=== PATIENT | male | born 2000 | race Caucasian/White ===

== ENCOUNTER 2023-10-22 15:10 | Emergency (ER) | payer OTHER ==
[2023-10-22 15:39] VITALS: BP 122/76; O2SAT 100
[2023-10-22 16:33] LABS: B. PARAPERTUSSIS- RESP PCR PAN NOT DETECTED; B. PERTUSSIS- RESP PCR PANEL NOT DETECTED; C. PNEUMONIAE- RESP PCR PANEL NOT DETECTED; CORONAVIRUS 229E-RESP PCR NOT DETECTED; CORONAVIRUS HKU1-RESP PCR NOT DETECTED; CORONAVIRUS NL63-RESP PCR NOT DETECTED; CORONAVIRUS OC43-RESP PCR NOT DETECTED; HUMAN METAPNEUMOVIRUS NOT DETECTED; INFLUENZA A- RESP PCR PANEL NOT DETECTED; INFLUENZA B - RESP PCR PANEL NOT DETECTED; M. PNEUMONIAE- RESP PCR PANEL NOT DETECTED; PARAINFLUENZA VIRUS 1 NOT DETECTED; PARAINFLUENZA VIRUS 2 NOT DETECTED; PARAINFLUENZA VIRUS 3 NOT DETECTED; PARAINFLUENZA VIRUS 4 NOT DETECTED; RHINOVIRUS/ENTEROVIRUS NOT DETECTED; RSV- RESP PCR PANEL NOT DETECTED; SARS-CoV-2 -RESP PCR PANEL NOT DETECTED
--- NOTE | 2023-10-22 17:16 | XRAY Report ---
PROCEDURE: Chest 1V INDICATIONS: SOA TECHNIQUE: One view of the chest was acquired. COMPARISON: None. FINDINGS: Surgical changes and devices: None. Lungs and pleura: No pleural effusions or pneumothorax. Lungs are clear. Mediastinum: Mediastinal contours appear normal. Heart size is normal. Bones and chest wall: No suspicious bony lesions. Overlying soft tissues appear unremarkable. IMPRESSION: No acute cardiopulmonary process. Reviewed by: Fito Robertson MD on 10/22/2023 5:14 PM PST Approved by: Fito Robertson MD on 10/22/2023 5:14 PM PST Station ID: [id number]
[2023-10-22] MEDS ORDERED: dexAMETHasone 4 MG TABLET PO STA (18:04)
[2023-10-22] MEDS ORDERED: AMOXICILLIN 250 MG CAPSULE PO STA (18:04)
--- NOTE | 2023-10-22 18:07 | ED Physician Documentation ---
PD HPI URI - Stated complaint Stated Complaint: COUGH/CONGESTION - Chief complaint Chief Complaint: Resp - History obtained from History obtained from: Patient - History of Present Illness Timing - onset: How many weeks ago (2) Timing duration: Weeks (2) Timing details: Abrupt onset (he was sick 2 weeks ago with URI symptoms and cough that has persisted, with now worse cough and purulent sputum, aches, wheezing.), Still present Associated symptoms: Productive cough, Chest pain (with coughing.), Dyspnea Contributing factors: No: Travel, Immunocompromised, COPD / asthma Recently seen: Not recently seen Review of Systems Nose: reports: Congestion Cardiac: reports: Chest pain / pressure (with cough) Respiratory: reports: Dyspnea, Cough, Wheezing GI: denies: Vomiting, Diarrhea PD PAST MEDICAL HISTORY - Past Medical History Cardiovascular: None Respiratory: None Endocrine/Autoimmune: None - Present Medications Home Medications: Ambulatory Orders Medication Instructions Recorded Confirmed Albuterol Sulf [Ventolin Hfa 2 puffs INH QID #1 each 10/22/23 Inhaler] Amoxicillin 500 mg PO TID #21 cap 10/22/23 dexAMETHasone [Decadron] 4 mg PO DAILY #7 tablet 10/22/23 - Allergies Allergies/Adverse Reactions: Allergies Allergy/AdvReac Type Severity Reaction Status Date / Time No Known Drug Allergies Allergy Verified 10/22/23 15:30 PD ED PE NORMAL - Vitals Vital signs reviewed: Yes - General General: Alert and oriented X 3, No acute distress, Well developed/nourished - HEENT HEENT: Ears normal, Pharynx benign - Neck Neck: Supple, no meningeal sign, No adenopathy - Cardiac Cardiac: RRR, No murmur - Respiratory Respiratory: No respiratory distress. No: Clear bilaterally (wheezing noted on expiration and cough. Congested sounds with cough perihilar. ) - Abdomen Abdomen: Soft, Non tender - Derm Derm: Normal color, Warm and dry - Extremities Extremities: No edema, No calf tenderness / cord Results - Vitals Vitals: Oxygen O2 Source Room air - Labs Labs: Laboratory Tests 10/22/23 15:20 Nasal Adenovirus (PCR) NOT DETECTED Nasal B. parapertussis DNA (PCR) NOT DETECTED Nasal Coronavir 229E PCR NOT DETECTED Nasal Coronavir HKU1 PCR NOT DETECTED Nasal Coronavir NL63 PCR NOT DETECTED Nasal Coronavir OC43 PCR NOT DETECTED Nasal Enterovir/Rhinovir PCR NOT DETECTED Nasal Influenza B PCR NOT DETECTED Nasal Influenza A PCR NOT DETECTED Nasal Parainfluen 1 PCR NOT DETECTED Nasal Parainfluen 2 PCR NOT DETECTED Nasal Parainfluen 3 PCR NOT DETECTED Nasal Parainfluen 4 PCR NOT DETECTED Nasal RSV (PCR) NOT DETECTED Nasal B.pertussis DNA PCR NOT DETECTED Nasal C.pneumoniae (PCR) NOT DETECTED Delisa Human Metapneumo PCR NOT DETECTED Nasal M.pneumoniae (PCR) NOT DETECTED Nasal SARS-CoV-2 (PCR) NOT DETECTED - Rads (name of study) chest xray Relevant Findings:: Prelim report reviewed (no acute process. ), EMP independent interpretation of test PD Medical Decision Making - ED course Complexity details: reviewed results (chest xray without acute process. ), considered differential (prolonged cough and now purulent, worse cough. Sounds likely viral illness initially with suspicion for bacterial transformation now. No pneumonia but sounding bronchitis. ), d/w patient Departure - Departure Disposition: 01 Home, Self Care Clinical Impression: Persistent cough, Bronchitis, acute Condition: Stable Record reviewed to determine appropriate education?: Yes Instructions: ED Upper Resp Infec Abx Tx Follow-Up: DELISA Jansen [Provider Group] Prescriptions: Amoxicillin 500 mg PO TID #21 cap dexAMETHasone [Decadron] 4 mg PO DAILY #7 tablet Albuterol Sulf [Ventolin Hfa Inhaler] 2 puffs INH QID #1 each Comments: Your chest x-ray is clear without any signs of pneumonia. Your viral respiratory panel test is negative for the major viruses currently going around. Given the longer duration of your symptoms and cough with discolored sputum and still having fevers, the consideration would be a secondary bacterial infection. We can treat as a possible bacterial bronchitis with the antibiotics as well as using an inhaler and steroids to help clear some of the wheeziness and cough. Persistent bronchial irritation from a viral cause would be unlikely to still be causing fevers and not much symptoms after 2 or 3 weeks. I sent your prescription to the [facility] pharmacy. Stay well-hydrated. Tylenol or ibuprofen for fevers or pains. Follow-up with your primary care if not improved well over the next 3 to 5 days. Forms: PCP List Discharge Date/Time: 10/22/23 18:20
== END 2023-10-22 18:20 | disposition home or self-care (01) ==
LOC: ED 15:10
DX: J20.9 Acute bronchitis, unspecified (principal); Z11.52 Encounter for screening for COVID-19
CPT/HCPCS: 71045; 87633; 99284; A9270; J8540

== ENCOUNTER 2024-01-18 16:07 | Emergency (ER) | payer OTHER ==
[2024-01-18 16:26] VITALS: BP 116/70; O2SAT 99
[2024-01-18 16:51] LABS: RAPID STREP SCREEN POSITIVE (Negative)
--- NOTE | 2024-01-18 16:56 | ED Physician Documentation ---
PD HPI URI - Stated complaint Stated Complaint: FEVER - Chief complaint Chief Complaint: Fever - History obtained from History obtained from: Patient - History of Present Illness Timing - onset: Yesterday Timing duration: Days (1) Timing details: Abrupt onset, Still present, Waxing and waning Associated symptoms: Fever, Sore throat, Swollen nodes. No: Nasal congestion, Rhinorrhea, Dry cough, Chest pain Similar symptoms before: Has not had sx before Review of Systems Constitutional: reports: Fever, Chills, Myalgias Nose: denies: Rhinorrhea / runny nose, Congestion Throat: reports: Sore throat, Swollen tonsils Respiratory: denies: Cough PD PAST MEDICAL HISTORY - Past Medical History Past Medical History: No Cardiovascular: None Respiratory: None Endocrine/Autoimmune: None - Past Surgical History Past Surgical History: Yes General: Appendectomy HEENT: Tonsil/Adenoidectomy - Present Medications Home Medications: Ambulatory Orders Medication Instructions Recorded Confirmed Amoxicillin 500 mg PO TID #21 cap 01/18/24 dexAMETHasone [Decadron] 4 mg PO DAILY #5 tablet 01/18/24 - Allergies Allergies/Adverse Reactions: Allergies Allergy/AdvReac Type Severity Reaction Status Date / Time No Known Drug Allergies Allergy Verified 01/18/24 16:26 - Social History Does the pt smoke?: No Smoking Status: Never smoker Does the pt drink ETOH?: No Does the pt have substance abuse?: No PD ED PE NORMAL - Vitals Vital signs reviewed: Yes - General General: Alert and oriented X 3, No acute distress, Well developed/nourished - HEENT HEENT: No: Pharynx benign (tonsils red and swollen with some exudate. No peritonsillar swelling. ) - Neck Neck: Supple, no meningeal sign, Other (anterior adenopathy bilaterally. ) - Cardiac Cardiac: RRR, No murmur - Respiratory Respiratory: Clear bilaterally - Abdomen Abdomen: Soft, Non tender, No organomegaly Results - Vitals Vitals: Vital Signs - 24 hr 01/18/24 16:17 Temperature 36.9 C Heart Rate 96 Respiratory 18 Rate Blood Pressure 116/70 O2 Saturation 99 Oxygen O2 Source Room air - Labs Labs: Laboratory Tests 01/18/24 01/18/24 16:34 16:40 Nasal Adenovirus (PCR) NOT DETECTED Nasal B. parapertussis DNA (PCR) NOT DETECTED Nasal Coronavir 229E PCR NOT DETECTED Nasal Coronavir HKU1 PCR NOT DETECTED Nasal Coronavir NL63 PCR NOT DETECTED Nasal Coronavir OC43 PCR NOT DETECTED Nasal Enterovir/Rhinovir PCR NOT DETECTED Nasal Influenza B PCR NOT DETECTED Nasal Influenza A PCR NOT DETECTED Nasal Parainfluen 1 PCR NOT DETECTED Nasal Parainfluen 2 PCR NOT DETECTED Nasal Parainfluen 3 PCR NOT DETECTED Nasal Parainfluen 4 PCR NOT DETECTED Nasal RSV (PCR) NOT DETECTED Nasal B.pertussis DNA PCR NOT DETECTED Nasal C.pneumoniae (PCR) NOT DETECTED Delisa Human Metapneumo PCR NOT DETECTED Nasal M.pneumoniae (PCR) NOT DETECTED Nasal SARS-CoV-2 (PCR) NOT DETECTED Group A Strep Rapid POSITIVE H PD Medical Decision Making - ED course Complexity details: considered differential (symptoms and findings c/w strep and has positive rapid test. ), d/w patient Departure - Departure Disposition: 01 Home, Self Care Clinical Impression: Acute streptococcal pharyngitis Condition: Stable Record reviewed to determine appropriate education?: Yes Instructions: ED Strep Pharyngitis Conf Follow-Up: DELISA Jansen [Provider Group] Prescriptions: Amoxicillin 500 mg PO TID #21 cap dexAMETHasone [Decadron] 4 mg PO DAILY #5 tablet Comments: Your strep test is positive. Your symptoms correspond with acute strep throat. Stay well-hydrated. Tylenol ibuprofen if needed for fevers or pains. We did give a starter dose of the antibiotic and steroid here that should allow for improving in symptoms later this evening and overnight but it will still be a few days and steady improvement of your symptoms. I sent prescriptions for the antibiotic and anti-inflammatory to the [facility] pharmacy. They would likely bleak closed soon enough. You are given a double dose here so the next dose tomorrow morning would be adequate. You will need to be on antibiotics for a full 24 hours at least before returning to work. Forms: PCP List, Activity restrictions Discharge Date/Time: 01/18/24 17:46
[2024-01-18 17:30] LABS: B. PARAPERTUSSIS- RESP PCR PAN NOT DETECTED; B. PERTUSSIS- RESP PCR PANEL NOT DETECTED; C. PNEUMONIAE- RESP PCR PANEL NOT DETECTED; CORONAVIRUS 229E-RESP PCR NOT DETECTED; CORONAVIRUS HKU1-RESP PCR NOT DETECTED; CORONAVIRUS NL63-RESP PCR NOT DETECTED; CORONAVIRUS OC43-RESP PCR NOT DETECTED; HUMAN METAPNEUMOVIRUS NOT DETECTED; INFLUENZA A- RESP PCR PANEL NOT DETECTED; INFLUENZA B - RESP PCR PANEL NOT DETECTED; M. PNEUMONIAE- RESP PCR PANEL NOT DETECTED; PARAINFLUENZA VIRUS 1 NOT DETECTED; PARAINFLUENZA VIRUS 2 NOT DETECTED; PARAINFLUENZA VIRUS 3 NOT DETECTED; PARAINFLUENZA VIRUS 4 NOT DETECTED; RHINOVIRUS/ENTEROVIRUS NOT DETECTED; RSV- RESP PCR PANEL NOT DETECTED; SARS-CoV-2 -RESP PCR PANEL NOT DETECTED
[2024-01-18] MEDS: dexAMETHasone 4 MG TABLET PO STA ×2 (17:30→17:46)
[2024-01-18] MEDS: AMOXICILLIN 250 MG CAPSULE PO STA (17:31)
[2024-01-18] MEDS: MAG HYDROX/AL HYDROX/SIMETH 30 ML UDC PO STA (17:48)
[2024-01-18] MEDS: LIDOCAINE VISCOUS 2% 15 ML ORAL SYRINGE MM STA (17:48)
== END 2024-01-18 17:46 | disposition home or self-care (01) ==
LOC: ED 16:07
DX: J02.0 Streptococcal pharyngitis (principal); Z11.52 Encounter for screening for COVID-19
CPT/HCPCS: 87430; 87633; 99283; A9270; J8540